=== PATIENT | male | born 1995 | race Caucasian/White ===

== ENCOUNTER 2024-12-31 04:07 | Emergency (ER) | payer BC, SELFPAY ==
[2024-12-31 04:12] VITALS: BP 147/93
--- NOTE | 2024-12-31 04:55 | ED.GENMED ---
History of Present Illness
<Bettina Reyes PA-C - Last Filed: 12/31/24 07:54>
General
Chief Complaint: Flank Pain
Source: patient
Exam Limitations: none
Time Seen by Provider: 12/31/24 04:43
Nursing documentation reviewed up to this point in time: agreed with
History of Present Illness
History of Present Illness:
The patient is a 29-year-old male presenting with flank pain primarily on the right side that recently moved to the left side and in a band across the back which has been going on for the past 2 weeks. This pain has been occurring for the past
couple of days. He reports that the pain is most severe when he wakes up in the morning, lasting for about 10-15 minutes before subsiding and becoming a dull ache throughout the day. The patient describes this as 'still there, but not a twinge,' and
it is often less severe after he is up and moving around. He notes that he woke up this morning at 3:30 AM due to abdominal pain and felt cold but denies vomiting or diarrhea. The pain also is now present across the entire abdomen but he has never
experienced this before. Seems to be worse on the right side. He attempted to relieve the pain with Advil, but its effectiveness is uncertain. The patient suspected that changing his sleeping position or bed setup might affect the pain but found no
improvement. He also mentions an incident in the supermarket where an accidental bump to his back caused a significant shock wave of pain that caused him to 'lock up' momentarily. He denies urinary symptoms, cough, or respiratory symptoms, and no
recent heavy lifting was reported. No fever, vomiting, chest pain, shortness of breath, feeling well otherwise.
Review of Systems
<Bettina Reyes PA-C - Last Filed: 12/31/24 07:54>
Review of Systems
All Other Systems: ROS reviewed and negative except as documented in HPI and ROS
Phy Exam
<Bettina Reyes PA-C - Last Filed: 12/31/24 07:54>
Physical Exam
Physical Exam:
General: Patient is well appearing and in no acute distress; non-toxic
Skin: Warm and dry, no rashes or lesions
Head: Normocephalic, atraumatic
Eyes: Sclera non-icteric. EOMs intact.
Cardiac: Regular rate and rhythm, no murmurs
Peripheral Vascular: No lower extremity swelling or edema
Pulm: Normal respiratory effort, no wheezes, rales, rhonchi
Abdomen: Diffuse nonfocal lower abdominal tenderness to palpation, no palpable abdominal masses
Musculoskeletal: No midline spinal tenderness, no CVA tenderness.
Neuro: CN II-XII intact, no focal neurologic deficits.
Psychiatric: Appropriate mood and affect.
Course
Edalt;Bettina Reyes PA-C - Last Filed: 12/31/24 07:54>
Orders/Labs/Results
Orders:
Orders
12/31/24 05:10
CT Abd/pelvis W Iv Cont Urgent
Comment:
Reason For Exam: right lower quad pain
12/31/24 05:25
Complete Blood Count/With Diff Urgent
Comprehensive Metabolic Panel Urgent
Lipase Urgent
Urinalysis Reflex To Culture Urgent
Date Specimen was Collected: 12/31/24
Time Specimen was Collected: 04:21
Urine Microscopic Reflex Cult Urgent
Abnormal Lab Results
12/31/24
05:25
WBC 4.4 L 10^3/uL
(4.8-10.8)
Monocytes % 10.3 H %
(1.7-9.3)
Glucose 101 H mg/dl
(70-99)
Urine Albumin (Reflex) 1+ A
(Neg - Trace)
12/31/24 05:25
12/31/24 05:25
Vital Signs
Initial and Last Documented VS:
Initial Vital Signs
Temp Pulse Resp BP Pulse Ox
98.1 F 93 20 147/93 98
12/31/24 04:12 12/31/24 04:12 12/31/24 04:12 12/31/24 04:12 12/31/24 04:12
Last Documented Vital Signs
Temp Pulse Resp BP Pulse Ox
98.1 F 77 16 127/82 98
12/31/24 04:12 12/31/24 05:29 12/31/24 05:29 12/31/24 05:29 12/31/24 05:29
<Elan Hurtado PA-C - Last Filed: 12/31/24 13:17>
Orders/Labs/Results
Orders:
Orders
12/31/24 05:10
CT Abd/pelvis W Iv Cont Urgent
Comment:
Reason For Exam: right lower quad pain
12/31/24 05:25
Complete Blood Count/With Diff Urgent
Comprehensive Metabolic Panel Urgent
Lipase Urgent
Urinalysis Reflex To Culture Urgent
Date Specimen was Collected: 12/31/24
Time Specimen was Collected: 04:21
Urine Microscopic Reflex Cult Urgent
Abnormal Lab Results
12/31/24
05:25
WBC 4.4 L 10^3/uL
(4.8-10.8)
Monocytes % 10.3 H %
(1.7-9.3)
Glucose 101 H mg/dl
(70-99)
Urine Albumin (Reflex) 1+ A
(Neg - Trace)
12/31/24 05:25
12/31/24 05:25
Vital Signs
Initial and Last Documented VS:
Initial Vital Signs
Temp Pulse Resp BP Pulse Ox
98.1 F 93 20 147/93 98
12/31/24 04:12 12/31/24 04:12 12/31/24 04:12 12/31/24 04:12 12/31/24 04:12
Last Documented Vital Signs
Temp Pulse Resp BP Pulse Ox
98.1 F 77 16 127/82 98
12/31/24 04:12 12/31/24 05:29 12/31/24 05:29 12/31/24 05:29 12/31/24 05:29
<Bettina Reyes PA-C - Last Filed: 12/31/24 07:54>
MDM/Problems Addressed
Differential Diagnosis Includes:
Differentials include musculoskeletal sprain/strain, appendicitis, nephrolithiasis, herniated disc
MDM/Problems Addressed:
The patient is a 29-year-old male presenting with flank pain primarily on the right side that recently moved to the left side and in a band across the back which has been going on for the past 2 weeks. This pain has been occurring for the past
couple of days. Today, it radiated to the abdomen and woke him from sleep. He is well-appearing, in no acute distress. He has minimal tenderness on exam. He is concerned about possible developing appendicitis or kidney stone. Will plan for CT
scan of the abdomen. Labs reviewed, no leukocytosis noted. CMP unremarkable. Urinalysis normal. He signed out to [facility]BR[facility] pending CT scan
Anticipate discharge
Chronic conditions affecting care:
n/a
<Bettina Reyes PA-C - Last Filed: 12/31/24 07:54>
*Pulse Oximetry
SaO2: 98
Oxygen Mode of Delivery: Room air
Patient hypoxic: no
*Critical Care Note
Total Time (30-74mins, 75-104mins- exclusive of procedures): Not Applicable
Data Reviewed
Review of Other/Old Records Reveals: Records
Source: patient and records
<Elan Hurtado PA-C - Last Filed: 12/31/24 13:17>
Patient Management
Escalation/DeEscalation of care consider admission/obs:
Patient received in signout pending CT scan of the abdomen and pelvis. CT ultimately without any acute pathology. We did discuss the incidental findings found. Patient can follow-up with primary care provider. Aware of return precautions.
ED Attending Note
<Bettina Reyes PA-C - Last Filed: 12/31/24 07:54>
-
Portions of this chart may have been created with voice recognition software.� Occasional wrong word or��sound alike� substitutions may have occurred due to the inherent limitations of voice recognition software.
Discharge Plan
Departure
Patient Disposition: Home (Routine Discharge)
Date of Disposition: 12/31/24
Time of Disposition: 07:53
Patient with high blood pressure during this ER visit?: No
Discharge Problem:
Abdominal pain
Instructions: Abdominal Pain
Referrals:
NONE,* [Family Provider, Internal Medicine]
Interventions
Interventions:
*Risk Screen - Suicide Last Done: 12/31/24 04:12
*General Assessment Last Done: 12/31/24 04:12
*Neglect/Abuse Screening Last Done: 12/31/24 04:12
*ED- Fall Risk Assessment Last Done: 12/31/24 04:12
*ED COVID-19 Vaccine History Last Done: 12/31/24 04:12
*ED Influenza Vaccine History Last Done: 12/31/24 04:12
*Nursing Disposition Last Done: 12/31/24 08:16
PX-Mpxjai-Befeywrrlq Assessment Last Done: 12/31/24 06:19
ED-Male Genitourinary Assessment Last Done: 12/31/24 06:19
Discharge Date and Time
Discharge Date/Time: 12/31/24 08:00
Print Language: WELSH
[2024-12-31 05:26] VITALS: BMI 28.1
[2024-12-31 05:27] VITALS: BP 127/82
[2024-12-31 05:29] VITALS: BP 127/82
[2024-12-31 05:40] LABS: Hematocrit 42.2 % (39.0-52.0); Hemoglobin 14.5 g/dL (13.0-18.0); Mean Corp Hgb Conc. 34.4 g/dL (33.0-37.0); Mean Corpuscular Volume 85.8 fL (80.0-94.0); Nucleated Red Blood Cells % 0 % (-); Platelet Count 182 10^3/uL (130-400); Red Cell Dist. Width 12.2 % (11.5-14.5)
[2024-12-31 05:52] LABS: Urine Character Clear (Clear)
[2024-12-31 05:59] LABS: ALT (SGPT) 37 U/L (0-50); AST (SGOT) 27 U/L (17-59); Albumin 4.5 g/dl (3.5-5.0); Alkaline Phosphatase 77 U/L (38-126); Blood Urea Nitrogen 17 mg/dl (9-20); Calcium 9.5 mg/dl (8.4-10.2); Carbon Dioxide 29 mmol/L (22-30); Chloride 105 mmol/L (98-107); Estimated Creatinine Clearance 108 ml/min; Glucose 101 mg/dl (70-99); Lipase 82 U/L (23-300); Potassium 4.3 mmol/L (3.5-5.1); Sodium 140 mmol/L (135-145); Total Protein 7.5 g/dl (6.3-8.2); eGFR > 60.00
[2024-12-31 06:21] LABS: Urine Squamous Cell 0-2 /LPF (Few)
[2024-12-31 06:22] LABS: Urine Red Blood Cell 0-2 /HPF (0-2); Urine White Cell 0-2 /HPF (0-5)
== END 2024-12-31 08:00 | disposition home or self-care (01) ==
LOC: EMR 04:07
PROVIDERS: EMERGENCY PHYSICIAN Student in an Organized Health Care Education/Training Program
DX: R10.31 Right lower quadrant pain (principal)
CPT/HCPCS: 99284; 74177; 80053; 81003; 81015; 83690; 85025; Q9967